=== PATIENT | female | born 1990 | race Caucasian/White ===

== ENCOUNTER 2021-10-18 05:04 | Emergency (ER) | payer OTHER ==
[2021-10-18 06:09] VITALS: O2SAT 97
[2021-10-18 06:18] VITALS: BP 111/52
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
[2021-10-18 06:37] LABS: Absolute Neutrophil Ct (ANC) 6.88 x10^3/uL (1.4-6.9); Basophil (Absolute #) 0.01 x10^3/uL (0-0.4); Eosinophil % 1.2 % (0.00-5.0); Eosinophil (Absolute #) 0.12 x10^3/uL (0-0.5); Hematocrit 36.8 % (35-47); Hemoglobin 12.5 g/dL (12.0-16.0); Lymphocyte (Absolute #) 2.43 x10^3/uL (1.0-4.6); Lymphocytes % 24.1 % (24.0-44.0); Mean Cell Volume 85.2 fL (78-100); Mean Corpuscular Hemoglobin 28.9 pg (26-32); Mean Platelet Volume 10.7 fL (7.5-11.0); Monocyte (Absolute #) 0.61 x10^3/uL (0.0-1.3); Monocytes % 6.1 % (0.0-12.0); Neutrophil % 68.2 % (36.0-66.0); Platelet Count 226 x10^3/uL (150-450); Red Blood Count 4.32 x10^6/uL (4.1-5.4); Red Cell Distribution Width 13.1 % (11.5-14.0); White Blood Count 10.1 x10^3/uL (4.0-10.5)
[2021-10-18 07:14] VITALS: PULSE 80
[2021-10-18 07:16] LABS: INFLUENZA A NEGATIVE (NEGATIVE); INFLUENZA B NEGATIVE (NEGATIVE); RESPIRATORY SYNCTIAL VIRUS NEGATIVE (Negative); SARS-CoV-2 Xpert Express NEGATIVE (NEGATIVE)
[2021-10-18 07:17] LABS: ALBUMIN 3.5 g/dL (3.5-5.0); ALKALINE PHOSPHATASE 118 U/L (38-126); ANION GAP 12.5 MEQ/L (5-15); BLOOD UREA NITROGEN 7 mg/dL (7-17); CHLORIDE 108 mmol/L (98-107); Calcium 8.9 mg/dL (8.4-10.2); Carbon Dioxide 18 mmol/L (22-30); Creatinine 1 0.41 mg/dL (0.52-1.04); EST GLOMERULAR FILTRATION RATE > 60.0 ML/MIN; Glucose 116 mg/dL (74-106); NT PRO BNP 69.8 pg/mL (0-450); Potassium 3.3 mmol/L (3.5-5.1); SGOT/AST 19 U/L (14-36); SGPT/ALT 13 U/L (0-35); SODIUM 135 mmol/L (137-145); Total Protein 6.9 g/dL (6.3-8.2)
== END 2021-10-18 07:39 | disposition left against medical advice (07) ==
LOC: ED 05:04
DX: R07.9 Chest pain, unspecified (principal); Z33.1 Pregnant state, incidental; Z72.0 Tobacco use; Z28.310 Unvaccinated for COVID-19
CPT/HCPCS: 0241U; 36000; 36415; 80053; 83880; 84484; 85025; 85379; 93005; 93041; 94760; 99284

== ENCOUNTER 2023-08-02 17:30 | Emergency (ER) | payer OTHER ==
--- NOTE | 2023-08-02 17:34 | ERPHSYRPT ---
- History of Present Illness Time Seen by Provider: 08/02/23 17:34 Source: patient Exam Limitations: no limitations Physician History: This is a 33-year-old white female patient of Dr. Prado who states that she has noticed an area on right posterior shoulder skin that is red and warm. Patient has been placed on doxycycline recently but has not been taking her medications per her report as prescribed. She states that she is too busy to take her antibiotics as prescribed for another type of infection. She still has 4 more days of a 7-day prescription that she needs to take. She did not see an insect bite her. She just noticed the redness and warmth in this area. This is a different area than what she was prescribed doxycycline for. She has not had fever. Timing/Duration: today Quality: burning, painful Severity: mild Location: extremities (Skin posterior right shoulder) Possible Causes: other (Possible insect bite. Not verified) Associated Symptoms: denies symptoms Allergies/Adverse Reactions: aspirin Allergy (Severe, Verified 08/02/23 18:18) Hives Penicillins Allergy (Severe, Verified 08/02/23 18:18) Hives Home Medications: Doxycycline Hyclate 100 mg [Vibramycin 100 MG] 100 mg PO BID 08/02/23 [History] Hx Tetanus, Diphtheria Vaccination/Date Given: Yes Hx Influenza Vaccination/Date Given: Yes Hx Pneumococcal Vaccination/Date Given: No Travel Risk - International Travel Have you traveled outside of the country in past 3 weeks: No - Emerging Infectious Disease Are you exhibiting symptoms associated with any current EIDs: No - Review of Systems Constitutional: No Symptoms Eyes: No Symptoms Ears, Nose, & Throat: No Symptoms Respiratory: No Symptoms Cardiac: No Symptoms Abdominal/Gastrointestinal: No Symptoms Genitourinary Symptoms: No Symptoms Musculoskeletal: No Symptoms Skin: Other (? Localized cellulitis versus skin reaction to insect bite venom) Neurological: No Symptoms Endocrine: No Symptoms Hematologic/Lymphatic: No Symptoms Immunological/Allergic: No Symptoms All Other Systems: Reviewed and Negative - Past Medical History Pertinent Past Medical History: Yes Cardiac History: Congenital Heart Disease - Past Surgical History Past Surgical History: Yes Cardiac: Vascular Surgery, Other Other Surgical History: open heart surgery when 6 year old - Social History Smoking Status: Current every day smoker How long have you smoked: 8 years Exposure to second hand smoke: No Drug Use: none Patient Lives Alone: No - Nursing Vital Signs Nursing Vital Signs: Initial Vital Signs Temperature 98.0 F 08/02/23 18:20 Pulse Rate 62 08/02/23 18:20 Respiratory Rate 18 08/02/23 18:20 Blood Pressure 113/71 08/02/23 18:20 O2 Sat by Pulse Oximetry 98 08/02/23 18:20 Pain Scale Pain Intensity 3 - Physical Exam General Appearance: no apparent distress, alert, anxiety Eye Exam: PERRL/EOMI, eyes nml inspection Ears, Nose, Throat Exam: normal ENT inspection, moist mucous membranes Neck Exam: normal inspection, non-tender, supple, full range of motion Respiratory Exam: airway intact, No chest tenderness, No respiratory distress Gastrointestinal/Abdomen Exam: No tenderness Rectal Exam: not done Back Exam: other (Skin redness right posterior shoulder. No abscess. 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 Skin Exam: other (See above description) Lymphatic Exam: No adenopathy SpO2 Interpretation: normal O2 Delivery: Room Air - Course Nursing assessment & vital signs reviewed: Yes Ordered Tests: Medication Summary Discontinued Medications Generic Name Dose Route Start Last Admin Trade Name Freq PRN Reason Stop Dose Admin Diphenhydramine HCl 50 mg 08/02/23 18:47 08/02/23 18:52 Diphenhydramine Hcl 25 Mg Capsule PO 08/02/23 18:48 50 mg STAT ONE Administration Diphenhydramine HCl Confirm 08/02/23 18:50 Diphenhydramine Hcl 25 Mg Capsule Administered 08/02/23 18:51 Dose 50 mg .ROUTE .STK-MED ONE Famotidine 40 mg 08/02/23 18:47 08/02/23 18:52 Famotidine 20 Mg Tablet PO 08/02/23 18:48 40 mg STAT ONE Administration Famotidine Confirm 08/02/23 18:50 Famotidine 20 Mg Tablet Administered 08/02/23 18:51 Dose 40 mg .ROUTE .STK-MED ONE Prednisone 20 mg 08/02/23 18:46 08/02/23 18:52 Prednisone 20 Mg Tablet PO 08/02/23 18:47 20 mg STAT ONE Administration Prednisone Confirm 08/02/23 18:50 Prednisone 20 Mg Tablet Administered 08/02/23 18:51 Dose 20 mg .ROUTE .STK-MED ONE Trimethoprim/Sulfamethoxazole 1 tab 08/02/23 18:44 08/02/23 18:48 Smz/Tmp Ds Tablet 1 Tablet PO 08/02/23 18:45 1 tab STAT ONE Administration Trimethoprim/Sulfamethoxazole Confirm 08/02/23 18:47 Smz/Tmp Ds Tablet 1 Tablet Administered 08/02/23 18:48 Dose 1 tab PO .STK-MED ONE - Progress Progress: unchanged Progress Note: 08/02/23 18:59 My medical decision making and the assignment of low complexity to this patient's medical issue is based on review of the patient's past medical history, review the patient's medication list, review the patient's drug allergy list, history of present illness and physical findings on examination. No laboratory radiographic studies are necessary in this patient. Differential diagnosis includes cellulitis, skin reaction to insect bite venom Counseled pt/family regarding: diagnosis, need for follow-up - Departure Departure Disposition: Home Clinical Impression: Cellulitis Condition: Stable Critical Care Time: No Referrals: LISA PRADO MD [Primary Care Provider] - Follow up/PCP as directed Additional Instructions: Keep the site clean daily with soap and water. Take your doxycycline twice a day as prescribed. Take [id number] Benadryl 25 mg orally 3 times a day for the next 5 days. Take your other prescription medication as prescribed. Call your primary care provider tomorrow, 08/03/2023 and make arrangements for further evaluation and management to be seen within the next 3 to 5 days. Prescriptions: Prednisone 10 mg [Deltasone 10 mg] 10 mg PO TID #12 tablet Famotidine 20 mg [Pepcid 20 MG] 20 mg PO DAILY #5 tablet
[2023-08-02 18:35] VITALS: TEMP 98; O2SAT 98
[2023-08-02] MEDS ORDERED: BACTRIM DS TABLET PO ONE (18:47)
[2023-08-02] MEDS: BACTRIM DS TABLET PO ONE (18:48)
[2023-08-02] MEDS ORDERED: DELTASONE 20 MG ONE (18:50)
[2023-08-02] MEDS ORDERED: BENADRYL 25 MG CAPSULE ONE (18:50)
[2023-08-02] MEDS ORDERED: Pepcid 20 MG ONE (18:50)
[2023-08-02] MEDS: DELTASONE 20 MG PO ONE (18:52)
[2023-08-02] MEDS: BENADRYL 25 MG CAPSULE PO ONE (18:52)
[2023-08-02] MEDS: Pepcid 20 MG PO ONE (18:52)
[2023-08-02 19:13] VITALS: BP 114/75; PULSE 68; RESP 16
== END 2023-08-02 19:15 | disposition home or self-care (01) ==
LOC: ED 17:30
DX: L03.113 Cellulitis of right upper limb (principal); Z79.52 Long term (current) use of systemic steroids; Z79.899 Other long term (current) drug therapy; Z72.0 Tobacco use
CPT/HCPCS: 99282; A9270-GY